=== PATIENT | male | born 1955 | race American Indian/Alaskan Native ===

== ENCOUNTER 2020-12-17 13:02 | Day surgery (SDC) | payer MEDICARE ==
[~2020-12-17 13:02] MED LIST: ceFAZolin/Water 2 GM/20 ML 2 GM/20 ML SYRINGE IV NR
[2020-12-17] MEDS ORDERED: SODIUM CHLORIDE 0.9% 1000 ML 1,000 ML ONE (13:24)
[2020-12-17] MEDS ORDERED: DEXTROSE 50% IN WATER (25GM) 50 ML SYRINGE IV ONE ×3 (13:28→16:45)
[2020-12-17] MEDS ORDERED: DEXTROSE 50% IN WATER (25GM) 50 ML VIAL IV ONE (13:35)
[2020-12-17] MEDS ORDERED: HYDROmorphone 1 MG/1 ML INJ IV PRN ×2 (13:37)
[2020-12-17] MEDS ORDERED: ONDANSETRON 4 MG/2 ML INJ IV PRN (13:37)
[2020-12-17 13:38] LABS: Hematocrit 34.2 % (35.5-45.6); Mean Corpuscular HGB Conc 32 % (32-34); Mean Corpuscular Volume 98 fl (84-94); Platelet Count 102 K/mm3 (140-440); Red Blood Count 3.48 M/mm3 (3.65-5.03); Red Cell Distribution Width 15.6 % (13.2-15.2)
--- NOTE | 2020-12-17 13:40 | Anesthesia Day of Surgery ---
Anesthesia Day of Surgery - Day of Surgery Patient Examined: Yes Patient H&P Reviewed: Yes Patient is NPO: Yes Beta Blockers: Yes
[2020-12-17] MEDS ORDERED: BUPIVACAINE/PF (0.5%) 5 MG/1 ML 30 ML VIAL INFILTRATI ONE ×2 (13:41→18:16)
[2020-12-17] MEDS ORDERED: SODIUM CHLORIDE 0.9% 500 ML 500 ML ONE (13:42)
[2020-12-17] MEDS ORDERED: SODIUM CHLORIDE P/F VIAL 10 ML 10 ML ONE (13:42)
[2020-12-17] MEDS ORDERED: rifAMPin 600 MG VIAL ONE (13:42)
[2020-12-17] MEDS ORDERED: HEPARIN 10,000 UNITS/10 ML VIAL ONE (13:42)
[2020-12-17] MEDS ORDERED: SODIUM CHLORIDE 0.9% 1000 ML 1,000 ML IV SCH (13:45)
--- NOTE | 2020-12-17 13:45 | Anesthesia Consultation ---
Anesthesia Consult and Med Hx Date of service: 12/17/20 - Airway Anesthetic Teeth Evaluation: Poor (Missing) ROM Head & Neck: Adequate Mental/Hyoid Distance: Adequate Mallampati Class: Class II Intubation Access Assessment: Good - Pre-Operative Health Status ASA Pre-Surgery Classification: ASA4 Proposed Anesthetic Plan: General - Pulmonary SOB: Yes COPD: Yes Home Oxygen Therapy: Yes Hx Sleep Apnea: Yes (DX) - Cardiovascular System Hx Hypertension: Yes (CHF. Ischemic cardiomyopathy) Hx Heart Attack/AMI: (???) Hx Cardia Arrhythmia: Yes (Afib/VT) Hx Pacemaker: Yes Hx Internal Defibrillator: Yes (Just replaced last month) Hx Heart Murmur: No Hx Peripheral Vascular Disease: Yes (Bilateral AKA) - Central Nervous System Hx Seizures: No Hx Back Pain: No - Gastrointestinal Hx Gastroesophageal Reflux Disease: Yes (Occasional dietary) - Endocrine Hx Renal Disease: Yes (Last HD yesterday) Hx End Stage Renal Disease: Yes (PERMACATH on right side-unable to do block) Hx Cirrhosis: No Hx Liver Disease: No Hx Non-Insulin Dependent Diabetes: Yes - Hematic Hx Anemia: Yes Hx Sickle Cell Disease: No - Additional Comments Anesthesia Medical History Comments: ECHO [id number] EF 0.32; dilated LV
[2020-12-17 13:46] LABS: Calcium 8.5 mg/dL (8.4-10.2)
[2020-12-17] MEDS ORDERED: LIDOCAINE MPF (2%) 20 MG/1 ML VIAL 5 ML ONE (15:49)
[2020-12-17] MEDS ORDERED: HYDROmorphone 1 MG/1 ML INJ ONE (15:49)
[2020-12-17] MEDS ORDERED: propofoL 200 MG/20 ML VIAL IV ONE (15:49)
[2020-12-17] MEDS ORDERED: HEPARIN 10,000 UNITS/10 ML VIAL IV ONE (18:13)
[2020-12-17] MEDS ORDERED: SODIUM CHLORIDE 0.9% IRR 1,500 ML BOTTLE IR ONE (18:15)
[2020-12-17] MEDS ORDERED: SODIUM CHLORIDE 0.9% 50 ML VIAL INFILTRATI ONE (18:18)
[2020-12-17] MEDS ORDERED: rifAMPin 600 MG VIAL IV ONE (18:18)
[2020-12-17] MEDS ORDERED: ONDANSETRON 4 MG/2 ML INJ ONE (18:33)
--- NOTE | 2020-12-17 18:48 | Short Stay Summary ---
Short Stay Documentation Date of service: 12/17/20 Narrative H&P: See H&P - History H&P: obtained from office - Allergies and Medications Current Medications: Allergies No Known Allergies Allergy (Unverified 12/09/20 13:33) Home Medications Medication Instructions Recorded Confirmed Last Taken Type Aspirin [Adult Aspirin] 81 mg PO DAILY 12/09/20 12/17/20 12/16/20 09:00 History Bumetanide [Bumetanide 2 mg tab] 2 mg PO PRN 12/09/20 12/17/20 12/16/20 07:00 History Hydralazine HCl 25 mg PO 4XD 12/09/20 12/17/20 12/17/20 09:00 History Multivit-Min/Iron/Vitamin K [Adult 1 tab PO DAILY 12/09/20 12/17/20 12/17/20 05:00 History Multivitamin-Iron Tablet] Novolin R 0 units SQ TID 12/09/20 12/09/20 Unknown History Oxycodone HCl/Acetaminophen 10 mg PO PRN 12/09/20 12/17/20 12/16/20 20:00 History [Oxycodone-Acetaminophen 10-325] Pantoprazole Sodium 40 mg PO DAILY 12/09/20 12/17/20 12/16/20 09:00 History Prorenal Multivitamin Tablet 1 tab PO 3XW 12/09/20 12/17/20 12/16/20 09:00 History Rosuvastatin Calcium [Crestor] 40 mg PO DAILY 12/09/20 12/17/20 12/16/20 09:00 History Tamsulosin [Flomax] 0.4 mg PO DAILY 12/09/20 12/17/20 12/16/20 09:00 History Active Medications Hydromorphone HCl (Hydromorphone 1 Mg/1 Ml Inj) 0.25 mg IV Q10MIN PRN PRN Reason: Pain, Moderate (4-6) Stop: 12/18/20 13:36 Hydromorphone HCl (Hydromorphone 1 Mg/1 Ml Inj) 0.5 mg IV Q10MIN PRN PRN Reason: Pain , Severe (7-10) Stop: 12/18/20 13:36 Cefazolin Sodium (Ancef/Sterile Water 2 Gm/20 Ml) 2 gm in 20 mls @ 80 mls/hr IV PREOP NR; Protocol Stop: 12/17/20 21:00 Sodium Chloride (Nacl 0.9% 1000 Ml) 1,000 mls @ 42 mls/hr IV DIRECT JEANNETTE Last Admin: 12/17/20 13:37 Dose: 42 mls/hr Documented by: Ondansetron HCl (Ondansetron 4 Mg/2 Ml Inj) 4 mg IV ONCE PRN PRN Reason: Nausea And Vomiting - Brief post op/procedure progress note Date of procedure: 12/17/20 Pre-op diagnosis: 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 Revision of Right Arm Arteriovenous Graft With Proximalization of Arterial Inflow To the Axillary Artery with Interposition 4 mm Bovine Artegraft Anesthesia: GETA Surgeon: KIT HERNANDEZ Estimated blood loss: 50-100ml Pathology: none Condition: stable - Disposition Condition at discharge: Good Disposition: DC-01 TO HOME OR SELFCARE Short Stay Discharge Plan Activity: other (No heavy lifting with right arm) Wound: open to air, keep clean and dry, other (Okay to wash the wound with soap and water but do not soak in water for 2 weeks.) Follow up with: KIT HERNANDEZ MD [Staff Physician] - 14 Days Prescriptions: Oxycodone HCl/Acetaminophen [Percocet 10/325 mg] 1 each PO Q6HR PRN #40 tablet PRN Reason: Pain
--- NOTE | 2020-12-17 18:49 | Operative Report ---
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 Revision of Right Arm Arteriovenous Graft With Proximalization of Arterial Inflow To the Axillary Artery with Interposition 4 mm Bovine Artegraft Surgeon: Delvis Rosario M.D. Supervisor Paper Products: None Anesthesia: General Endotracheal Esthesia EBL: 50 mL Counts: Correct Complications: None Condition: Stable Findings: Successful revision of right arm AV graft with palpable thrill and palpable radial pulse at the completion of the case. Specimen: None Indication: The patientIs a 65-year-old male with a history of end-stage renal disease who had a creation of a right arm brachial artery to axillary vein arteriovenous graft in June 2020. Since that time he has had numbness of his right hand and inability to use the hand. He is right-hand dominant so this is significantly affected his lifestyle. A recent ultrasound revealed that there is significant improvement of flow within his radial and ulnar artery with compression of the graft. He is in need of revision of the graft to proximalize the inflow to improve the flow to his right hand. He has been given the risk, benefits, and alternative procedures and consented to the procedure. Description of Procedure: The patient was brought to the operating room and laid in supine position. After general endotracheal anesthesia was achieved his right arm was prepped and draped in normal sterile fashion. A longitudinal incision was created on the medial aspect of his arm just below the antecubital crease and sharp dissection was used to carry the incision down to his axillary artery. The axillary artery was dissected circumferentially and controlled with Vesseloops. I then used a 10 blade to create an incision just above the antecubital crease, through his previous incision and dissected out the graft near the arterial anastomosis. The graft was dissected circumferentially over approximately 4 cm segment. I then chose a 4 mm Bovine Artegraft and used the Little-Wick tunneler to tunnel from the axillary incision to the arterial inflow incision. I systemically heparinized the patient with 3000 units of heparin IV and then clamped the axillary artery. Of note the artery was heavily calcified. I created an arteriotomy using an 11 blade and Haile scissors. I then beveled the graft and created an end-to-side anastomosis using a 6-0 Prolene in running fashion. After creating the anastomosis I clamped the graft near the anastomosis and released the clamps on the axillary artery. Hemostasis at the anastomosis was achieved with quick clot. I then placed a hemostat on the indwelling AV graft near the arterial anastomosis and an angled DeBakey clamp approximately 3 cm from the hemostat to leave a cuff to show my anastomosis. I then transected the graft. I oversewed the portion of the graft, at the arterial anastomosis, using a 4-0 Prolene in 2 layer fashion. I then cut the 4 mm bovine Artegraft to length and beveled the end as well as beveling the end of the indwelling graft and created an end-to-end anastomosis using two 6-0 Prolene's in running fashion. Prior to completing the anastomosis I flashed the arterial inflow as well as the venous outflow and then flushed the anastomosis with heparinized saline. I then completed the anastomosis and released all clamps allowing flow into the graft without a palpable thrill. In addition to the graft and a palpable thrill the patient had a palpable radial pulse. Hemostasis within both wounds was achieved with a combination of direct pressure and cautery. Once hemostasis was achieved the wounds were anesthetized with 0.5% Marcaine and closed in 2 layers using 3-0 Vicryl in running fashion the deep dermal layers and 4-0 Monocryl in a running fashion and the subcuticular layer and then dressed with Dermabond. The patient tolerated the procedure well. All sponge, needle, and instrument counts were correct. The patient was taken to the recovery area in stable condition.
--- NOTE | 2020-12-17 19:08 | Post Anesthesia Evaluation ---
- Post Anesthesia Evaluation Patient Participated: Yes Airway Patent: Yes Stable Respiratory Function: Yes Nausea/Vomiting: No Temp > 96.8F: Yes Pain Manageable: Yes Adequeate Hydration: Yes Anesthesia Complications: No Block Receding Appropriately: Not Applicable Patient on Ventilator: No
[2020-12-17 20:50] VITALS: BP 129/57
== END 2020-12-17 13:03 | disposition home or self-care (01) ==
LOC: OR 13:02
PROVIDERS: ATTEND Surgery Vascular Surgery
DX: T82.898A Other specified complication of vascular prosthetic devices, implants and grafts, initial encounter (principal); I13.2 Hypertensive heart and chronic kidney disease with heart failure and with stage 5 chronic kidney disease, or end stage renal disease; N18.6 End stage renal disease; E11.22 Type 2 diabetes mellitus with diabetic chronic kidney disease; K21.9 Gastro-esophageal reflux disease without esophagitis; I50.9 Heart failure, unspecified; I48.91 Unspecified atrial fibrillation; J44.9 Chronic obstructive pulmonary disease, unspecified; G47.30 Sleep apnea, unspecified; D64.9 Anemia, unspecified; F17.210 Nicotine dependence, cigarettes, uncomplicated; Z98.890 Other specified postprocedural states; Z79.899 Other long term (current) drug therapy; Z79.82 Long term (current) use of aspirin; Y82.8 Other medical devices associated with adverse incidents; Y92.89 Other specified places as the place of occurrence of the external cause
CPT/HCPCS: 36415; 36832; 80048; 82962; 85027; C1768; J0690; J1170; J1644; J2405; J2704; J3490; J7030; J7040